=== PATIENT | female | born 1955 | race Caucasian/White ===

== ENCOUNTER 2016-10-03 13:05 | Emergency (ER) | payer SELFPAY ==
[~2016-10-03] VITALS: Ht 162.6 cm; Wt 63.5 kg
[2016-10-03 14:06] VITALS: BP 161/84
== END 2016-10-03 14:06 | disposition home or self-care (01) ==
LOC: ED 13:05
DX: S52.571A Other intraarticular fracture of lower end of right radius, initial encounter for closed fracture (principal); V98.8XXA Other specified transport accidents, initial encounter; Y93.89 Activity, other specified; Y99.8 Other external cause status; Y92.89 Other specified places as the place of occurrence of the external cause
CPT/HCPCS: A4570; J1885; J2270; Q0162